=== PATIENT | male | born 1940 | race Two or more races ===

== ENCOUNTER 2023-03-24 13:44 | Inpatient (IN) | payer OTHER, MEDICARE ==
[~2023-03-24] VITALS: Ht 172.7 cm; Wt 64.0 kg
[2023-03-24] MEDS ORDERED: SODIUM CHLORIDE 0.9% 1,000 ML IV ONE ×2 (15:45)
[2023-03-24 16:06] LABS: Basophils # (auto) 0 10 ^3/uL (0-0.2); Eosinophils # (auto) 0 10 ^3/uL (0-0.8); Monocytes # (auto) 0.8 10 ^3/uL (0-1.3); Neutrophils # (auto) 8.1 10 ^3/uL (1.6-8.6)
[2023-03-24 16:08] LABS: Basophils % (auto) 0.3 % (0.0-2.0); Eosinophils % (auto) 0.3 % (0.0-7.0); Hematocrit 54.4 % (41.0-53.0); Hemoglobin 18.7 g/dL (13.5-17.5); Lymphocytes # (auto) 0.3 10 ^3/uL (0.4-5.4); Lymphocytes % (auto) 3.2 % (10.0-50.0); Mean Corpuscular Hgb Conc. 34.3 g/dL (32.0-36.0); Mean Corpuscular Volume 93.3 fL (80.0-100.0); Monocytes % (auto) 8.3 % (0.0-12.0); Neutrophils % (auto) 87.9 % (37.0-80.0); Nucleated Red Blood Cells % 0.2 %; Red Blood Cells 5.83 10^6/uL (4.5-5.90); Red Cell Distribution Width 17.6 % (11.8-14.3); White Blood Cell 9.2 10^3/uL (4.4-10.8)
[2023-03-24 16:39] LABS: Albumin 3.1 g/dL (3.4-5.0); Calcium 9.5 mg/dL (8.5-10.1); Potassium 4.9 mmol/L (3.5-5.1)
[2023-03-24 16:42] LABS: BUN/Creatinine Ratio 18.5 (10.0-20.0); Bilirubin, Total 0.3 mg/dL (0.2-1.0); Total Protein 6.3 g/dL (6.4-8.2)
[2023-03-24] MEDS ORDERED: LISI-716 PO (19:29)
[2023-03-24] MEDS ORDERED: TAMS0.4C36 PO (19:29)
[2023-03-24] MEDS ORDERED: LEV25T PO (19:29)
[2023-03-24] MEDS ORDERED: LEVE250T3 PO (19:29)
[2023-03-24] MEDS ORDERED: hydrALAZINE HCL 20 MG/ML VL IV PRN (19:30)
[2023-03-24] MEDS ORDERED: MORPHINE SULFATE INJ 2 MG/ml SYRG IV PRN ×2 (19:45)
[2023-03-24] MEDS ORDERED: HYDROcodone-ACET 5/325MG TAB PO PRN (19:45)
[2023-03-24] MEDS ORDERED: NITROGLYCERIN 0.4 MG SL TAB SL PRN (19:45)
[2023-03-24] MEDS ORDERED: ACETAMINOPHEN 325 MG TAB PO PRN (19:45)
[2023-03-24] MEDS ORDERED: PANTOPRAZOLE 40 MG/10 ML VIAL INJ IV ONE (20:00)
[2023-03-24] MEDS ORDERED: IOHEXOL 350 MG/ML 100ML IJ ONE (20:05)
[2023-03-24 20:25] LABS: Cholesterol 116 mg/dL (< 200)
[2023-03-24 20:26] LABS: INR 1.06 (0.9-1.15); Partial Thromboplastin Time 28.5 sec (24.6-33.4)
[2023-03-24 20:27] LABS: HDL Cholesterol 33 mg/dL (40-59); LDL Cholesterol 61 mg/dL (< 100); Triglycerides 48 mg/dL (< 150)
[2023-03-24 20:45] LABS: Free T3 3.35 pg/mL (2.3-4.2); Free T4 (Free Thyroxine) 1.44 ng/dL (0.89-1.76)
[2023-03-24] MEDS: LACTATED RINGER'S 1,000 ML IV SCH (20:59)
[2023-03-24 22:48] VITALS: BP 150/99
[2023-03-24] MEDS: PIPERACILLIN-TAZOB 3.375GM 100 ML IV SCH (23:00)
[2023-03-25 04:07] LABS: Urine Bacteria NONE SEEN /hpf (None Seen); Urine Blood TRACE /uL (Negative); Urine WBC 137 /hpf (0 - 3)
[2023-03-25 04:21] LABS: Urine Specific Gravity > 1.050 (1.001-1.035)
[2023-03-25 05:00] VITALS: BP 131/77
[2023-03-25] MEDS: LACTATED RINGER'S 1,000 ML IV SCH ×2 (05:19→13:39)
[2023-03-25] MEDS: PIPERACILLIN-TAZOB 3.375GM 100 ML IV SCH ×3 (05:20→21:48)
[2023-03-25 06:28] LABS: Basophils # (auto) 0 10 ^3/uL (0-0.2); Basophils % (auto) 0.2 % (0.0-2.0); Eosinophils # (auto) 0.1 10 ^3/uL (0-0.8); Eosinophils % (auto) 2.2 % (0.0-7.0); Hematocrit 43.9 % (41.0-53.0); Hemoglobin 14.9 g/dL (13.5-17.5); Lymphocytes # (auto) 0.5 10 ^3/uL (0.4-5.4); Lymphocytes % (auto) 9.3 % (10.0-50.0); Mean Corpuscular Hemoglobin 31.9 pg (28.0-32.0); Mean Corpuscular Hgb Conc. 33.8 g/dL (32.0-36.0); Mean Corpuscular Volume 94.4 fL (80.0-100.0); Monocytes # (auto) 0.8 10 ^3/uL (0-1.3); Neutrophils # (auto) 3.8 10 ^3/uL (1.6-8.6); Neutrophils % (auto) 73.3 % (37.0-80.0); Nucleated Red Blood Cells % 0.2 %; Red Blood Cells 4.65 10^6/uL (4.5-5.90); Red Cell Distribution Width 17.3 % (11.8-14.3); White Blood Cell 5.2 10^3/uL (4.4-10.8)
[2023-03-25 06:35] LABS: Albumin 2.5 g/dL (3.4-5.0); Calcium 8.8 mg/dL (8.5-10.1)
[2023-03-25 06:37] LABS: BUN/Creatinine Ratio 23.4 (10.0-20.0)
[2023-03-25 06:40] LABS: Bilirubin, Total 0.3 mg/dL (0.2-1.0); Total Protein 5.2 g/dL (6.4-8.2)
[2023-03-25 09:00] VITALS: BP 116/80
[2023-03-25] MEDS ORDERED: PANTOPRAZOLE 40 MG/10 ML VIAL INJ IV SCH (10:00)
[2023-03-25] MEDS: ENOXAPARIN SOD 40 MG/0.4 ML SYRINGE SC SCH (11:58)
[2023-03-25] MEDS ORDERED: FINASTERIDE 5 MG TAB PO ONE (12:45)
[2023-03-25 13:00] VITALS: BP 127/75
[2023-03-25 16:55] VITALS: BP 136/79
[2023-03-25] MEDS: TAMSULOSIN HYDROCHLORIDE 0.4 MG CAP PO SCH (17:39)
[2023-03-25] MEDS: DOCUSATE SOD 100 MG CAP PO SCH (21:48)
[2023-03-25 22:00] VITALS: BP 100/61
[2023-03-26 05:00] VITALS: BP 123/67
[2023-03-26] MEDS: LACTATED RINGER'S 1,000 ML IV SCH ×2 (05:25→22:05)
[2023-03-26] MEDS: PIPERACILLIN-TAZOB 3.375GM 100 ML IV SCH (06:00)
[2023-03-26 09:00] VITALS: BP 114/54
[2023-03-26] MEDS ORDERED: LORazepam 2MG/ML-1ML VIAL IV PRN (09:00)
[2023-03-26] MEDS: FINASTERIDE 5 MG TAB PO SCH (10:01)
[2023-03-26] MEDS: levETIRAcetam 500 MG TAB PO SCH ×2 (10:01→21:04)
[2023-03-26] MEDS: DOCUSATE SOD 100 MG CAP PO SCH ×2 (10:01→21:04)
[2023-03-26] MEDS: ENOXAPARIN SOD 40 MG/0.4 ML SYRINGE SC SCH (10:01)
[2023-03-26 13:00] VITALS: BP 124/67
[2023-03-26] MEDS: cefTRIAXone 1GM/50ML D5W 50 ML IV SCH (14:07)
[2023-03-26 16:39] VITALS: BP 112/58
[2023-03-26] MEDS: TAMSULOSIN HYDROCHLORIDE 0.4 MG CAP PO SCH (17:39)
[2023-03-26 20:00] VITALS: BP 114/63
[2023-03-27 05:00] VITALS: BP 156/67
[2023-03-27 06:36] LABS: Basophils # (auto) 0 10 ^3/uL (0-0.2); Basophils % (auto) 0.1 % (0.0-2.0); Eosinophils # (auto) 0.1 10 ^3/uL (0-0.8); Eosinophils % (auto) 2.7 % (0.0-7.0); Hematocrit 41.1 % (41.0-53.0); Hemoglobin 14.4 g/dL (13.5-17.5); Lymphocytes # (auto) 0.5 10 ^3/uL (0.4-5.4); Lymphocytes % (auto) 10.3 % (10.0-50.0); Mean Corpuscular Hemoglobin 32.4 pg (28.0-32.0); Mean Corpuscular Volume 92.5 fL (80.0-100.0); Monocytes # (auto) 0.6 10 ^3/uL (0-1.3); Monocytes % (auto) 13.5 % (0.0-12.0); Neutrophils # (auto) 3.4 10 ^3/uL (1.6-8.6); Neutrophils % (auto) 73.4 % (37.0-80.0); Nucleated Red Blood Cells % 0.1 %; Red Blood Cells 4.44 10^6/uL (4.5-5.90); Red Cell Distribution Width 17.3 % (11.8-14.3); White Blood Cell 4.6 10^3/uL (4.4-10.8)
[2023-03-27 06:49] LABS: BUN/Creatinine Ratio 26.8 (10.0-20.0); Calcium 8.6 mg/dL (8.5-10.1); Potassium 3.7 mmol/L (3.5-5.1)
[2023-03-27 08:59] VITALS: BP 131/79
[2023-03-27] MEDS: cefTRIAXone 1GM/50ML D5W 50 ML IV SCH (09:13)
[2023-03-27] MEDS: FINASTERIDE 5 MG TAB PO SCH (10:11)
[2023-03-27] MEDS: ENOXAPARIN SOD 40 MG/0.4 ML SYRINGE SC SCH (10:11)
[2023-03-27] MEDS: DOCUSATE SOD 100 MG CAP PO SCH ×2 (10:11→21:41)
[2023-03-27] MEDS: levETIRAcetam 500 MG TAB PO SCH ×2 (10:11→21:41)
[2023-03-27 12:48] VITALS: BP 127/68
[2023-03-27] MEDS: LACTATED RINGER'S 1,000 ML IV SCH (15:18)
[2023-03-27 16:56] VITALS: BP 147/73
[2023-03-27] MEDS: TAMSULOSIN HYDROCHLORIDE 0.4 MG CAP PO SCH (18:45)
[2023-03-27 22:00] VITALS: BP 137/67
[2023-03-28 05:17] VITALS: BP 126/54
[2023-03-28] MEDS: LACTATED RINGER'S 1,000 ML IV SCH (08:26)
[2023-03-28 09:00] VITALS: BP 140/62
[2023-03-28] MEDS: cefTRIAXone 1GM/50ML D5W 50 ML IV SCH (09:17)
[2023-03-28] MEDS: levETIRAcetam 500 MG TAB PO SCH ×2 (09:43→21:31)
[2023-03-28] MEDS: ENOXAPARIN SOD 40 MG/0.4 ML SYRINGE SC SCH (09:43)
[2023-03-28] MEDS: DOCUSATE SOD 100 MG CAP PO SCH ×2 (09:43→21:31)
[2023-03-28] MEDS: FINASTERIDE 5 MG TAB PO SCH (09:43)
[2023-03-28] MEDS ORDERED: LACTULOSE 20Gm/30ML SOLN PO ONE (11:30)
[2023-03-28 13:00] VITALS: BP 123/61
[2023-03-28 17:00] VITALS: BP 151/64
[2023-03-28] MEDS: TAMSULOSIN HYDROCHLORIDE 0.4 MG CAP PO SCH (18:31)
[2023-03-28 22:00] VITALS: BP 139/73
[2023-03-29] MEDS: LACTATED RINGER'S 1,000 ML IV SCH (00:05)
[2023-03-29 05:00] VITALS: BP 160/74
[2023-03-29 05:30] VITALS: BP 154/89
[2023-03-29 09:00] VITALS: BP 157/55
[2023-03-29] MEDS: cefTRIAXone 1GM/50ML D5W 50 ML IV SCH (10:24)
[2023-03-29] MEDS: levETIRAcetam 500 MG TAB PO SCH ×2 (10:25→21:40)
[2023-03-29] MEDS: ENOXAPARIN SOD 40 MG/0.4 ML SYRINGE SC SCH (10:25)
[2023-03-29] MEDS: FINASTERIDE 5 MG TAB PO SCH (10:25)
[2023-03-29] MEDS: DOCUSATE SOD 100 MG CAP PO SCH ×2 (10:25→22:00)
[2023-03-29] MEDS ORDERED: levoFLOXacin 500MG 100 ML IV ONE (11:45)
[2023-03-29] MEDS ORDERED: BISACODYL 5 MG EC TAB PO ONE (11:45)
[2023-03-29 13:00] VITALS: BP 154/63
[2023-03-29 16:47] VITALS: BP 157/78
[2023-03-29] MEDS: TAMSULOSIN HYDROCHLORIDE 0.4 MG CAP PO SCH (18:01)
[2023-03-29 22:00] VITALS: BP 140/71
[2023-03-30 05:00] VITALS: BP 122/73
[2023-03-30 09:00] VITALS: BP 138/75
[2023-03-30] MEDS: levoFLOXacin 500MG 100 ML IV SCH (10:31)
[2023-03-30] MEDS: DOCUSATE SOD 100 MG CAP PO SCH ×2 (10:32→21:12)
[2023-03-30] MEDS: ENOXAPARIN SOD 40 MG/0.4 ML SYRINGE SC SCH (10:33)
[2023-03-30] MEDS: levETIRAcetam 500 MG TAB PO SCH ×2 (10:33→21:12)
[2023-03-30] MEDS: FINASTERIDE 5 MG TAB PO SCH (10:33)
[2023-03-30 13:00] VITALS: BP 149/84
[2023-03-30] MEDS ORDERED: FLEET ENEMA(ADULT) 135 ML PR ONE (13:15)
[2023-03-30] MEDS ORDERED: LEVO500T31 PO (13:19)
[2023-03-30] MEDS ORDERED: FIN5T PO (13:19)
[2023-03-30] MEDS ORDERED: LACT10SO70 PO (13:19)
[2023-03-30 17:00] VITALS: BP 138/66
[2023-03-30] MEDS: TAMSULOSIN HYDROCHLORIDE 0.4 MG CAP PO SCH (17:39)
[2023-03-30 22:00] VITALS: BP 141/66
[2023-03-31 05:00] VITALS: BP 133/70
[2023-03-31 09:00] VITALS: BP 133/67
[2023-03-31] MEDS: DOCUSATE SOD 100 MG CAP PO SCH (09:59)
[2023-03-31] MEDS: levoFLOXacin 500MG 100 ML IV SCH (09:59)
[2023-03-31] MEDS: levETIRAcetam 500 MG TAB PO SCH (09:59)
[2023-03-31] MEDS: FINASTERIDE 5 MG TAB PO SCH (09:59)
[2023-03-31] MEDS: ENOXAPARIN SOD 40 MG/0.4 ML SYRINGE SC SCH (10:00)
[2023-03-31 13:00] VITALS: BP 109/71
[2023-03-31 13:17] VITALS: BP 109/71
== END 2023-03-31 15:55 | disposition hospice, home (50) | DRG 389 ==
LOC: EDBD 13:44 → ER 13:44 → TELE 19:45 → TELE-WESTW 22:09 → WEST WING 03-29 20:31
PROVIDERS: ADMIT Registered Nurse; ATTEND Internal Medicine
PROC: 0D9670Z Drainage of Stomach with Drainage Device, Via Natural or Artificial Opening (ICD-10-PCS; principal; 2023-03-24)
DX: K56.41 Fecal impaction (principal); K56.609 Unspecified intestinal obstruction, unspecified as to partial versus complete obstruction; N39.0 Urinary tract infection, site not specified; I10 Essential (primary) hypertension; N40.0 Benign prostatic hyperplasia without lower urinary tract symptoms; B96.5 Pseudomonas (aeruginosa) (mallei) (pseudomallei) as the cause of diseases classified elsewhere; E03.9 Hypothyroidism, unspecified; G40.909 Epilepsy, unspecified, not intractable, without status epilepticus; Z51.5 Encounter for palliative care
CPT/HCPCS: 36415; 70450; 71045; 71275; 74176; 80048; 80053; 80061; 81001; 83036; 83880; 84439; 84443; 84481; 84484; 85025; 85379; 85610; 85730; 87040; 87086; 87088; 87186; 93306; 96360; C9113; G0378; J0696; J1956; J2543; J7060